=== PATIENT | male | born 1960 | race American Indian/Alaskan Native ===

== ENCOUNTER 2019-02-01 07:27 | Emergency (ER) | payer MEDICARE ==
--- NOTE | 2019-02-01 08:40 | Emergency Department Report ---
ED Abdominal Pain HPI - General Chief Complaint: Abdominal Pain Stated Complaint: ABDOMINAL PAIN Time Seen by Provider: 02/01/19 08:28 Source: patient Mode of arrival: Stretcher Limitations: Other - History of Present Illness Initial Comments: 58 YO AA MALE WHO IS VISITING HIS BROTHER COMES TO ER WITH R FLANK PAIN. NO N/V/D. NO FEVER OR CHILLS. PT IS FROM [place]. HE STATES THAT HE HAS HAD THE PAIN FOR OVER A YEAR; BUT IT IS WORSE. IT IS WORSE WITH MOVEMENT. HE HAD A COLONOSCOPY 1 MONTH AGO - HE HAD A POLYP DENIES EGD PMH ESRD ON HD- DUE TODAY HTN HPLD GERD SHINGLES--- HE CURRENTLY HAS NO RASH AND THE PAIN IS NOT DERMATONAL CHRONIC PAIN DM RX SHERWIN COREG STATIN PPI ASA DIABETES MED- FORGETS NAME. PT AMBULATORY TO ER; TAKING PO AND IN NAD Complaint: flank pain -: Gradual, month(s) (12) Location: R flank Radiation: none Severity: moderate Consistency: intermittent Worsens With: movement Associated Symptoms: denies other symptoms - Related Data Home Medications Medication Instructions Recorded Confirmed Last Taken Aspirin [Aspirin BABY CHEW TAB] 81 mg PO QDAY 02/01/19 02/01/19 01/31/19 AtorvaSTATin [Lipitor] 40 mg PO QHS 02/01/19 02/01/19 01/31/19 Carvedilol [Coreg] 25 mg PO BID 02/01/19 02/01/19 01/31/19 Gabapentin [Neurontin] 100 mg PO QHS 02/01/19 02/01/19 01/31/19 Insulin NPH Hum/Reg Insulin Hm 37 unit SQ QAM 02/01/19 02/01/19 01/31/19 [HumuLIN 70-30 Vial] Pantoprazole [Protonix] 40 mg PO QHS 02/01/19 02/01/19 01/31/19 Sucroferric Oxyhydroxide(Nf) 500 mg PO QDAY 02/01/19 02/01/19 01/31/19 [Velphoro (Nf)] Previous Rx's Medication Instructions Recorded Last Taken Type Ibuprofen [Motrin] 800 mg PO Q8HR PRN #30 tablet 02/01/19 Unknown Rx Allergies Allergy/AdvReac Type Severity Reaction Status Date / Time No Known Allergies Allergy Unverified 02/01/19 07:47 ED Review of Systems ROS: Stated complaint: ABDOMINAL PAIN Other details as noted in HPI Comment: All other systems reviewed and negative ED Past Medical Hx - Past Medical History Previous Medical History?: Yes Hx Hypertension: Yes Hx CVA: No Hx Heart Attack/AMI: No Hx Congestive Heart Failure: No Hx Diabetes: Yes Hx Deep Vein Thrombosis: No Hx Pulmonary Embolism: No Hx GERD: Yes Hx Liver Disease: No Hx Renal Disease: Yes (ESRD) Hx of Cancer: No Hx Sickle Cell Disease: No Hx Arthritis: No Hx Headaches / Migraines: No Hx Seizures: No Hx Kidney Stones: No Hx Psychiatric Treatment: No Hx Asthma: No Hx COPD: No Hx Tuberculosis: No Hx Dementia: No Hx HIV: No Additional medical history: HIGH CHOLESTROL/ SHINGLES/ GALL STONES/ LEGALLY BLIND - Surgical History Past Surgical History?: Yes Hx Open Heart Surgery: Yes ([facility] [place] 2005 AND 2007) Additional Surgical History: CHOLEY - Family History Family history: no significant - Social History Smoking Status: Never Smoker Substance Use Type: None - Medications Home Medications: Home Medications Medication Instructions Recorded Confirmed Last Taken Type Aspirin [Aspirin BABY CHEW TAB] 81 mg PO QDAY 02/01/19 02/01/19 01/31/19 History AtorvaSTATin [Lipitor] 40 mg PO QHS 02/01/19 02/01/19 01/31/19 History Carvedilol [Coreg] 25 mg PO BID 02/01/19 02/01/19 01/31/19 History Gabapentin [Neurontin] 100 mg PO QHS 02/01/19 02/01/19 01/31/19 History Ibuprofen [Motrin] 800 mg PO Q8HR PRN #30 tablet 02/01/19 Unknown Rx Insulin NPH Hum/Reg Insulin Hm 37 unit SQ QAM 02/01/19 02/01/19 01/31/19 History [HumuLIN 70-30 Vial] Pantoprazole [Protonix] 40 mg PO QHS 02/01/19 02/01/19 01/31/19 History Sucroferric Oxyhydroxide(Nf) 500 mg PO QDAY 02/01/19 02/01/19 01/31/19 History [Velphoro (Nf)] ED Physical Exam - General Limitations: Other General appearance: alert - Head Head exam: Present: normocephalic - Eye Eye exam: Present: PERRL - ENT ENT exam: Present: mucous membranes moist - Neck Neck exam: Present: normal inspection - Respiratory Respiratory exam: Present: normal lung sounds bilaterally - Cardiovascular Cardiovascular Exam: Present: regular rate - GI/Abdominal GI/Abdominal exam: Present: soft, normal bowel sounds - Rectal Rectal exam: Present: deferred - Extremities Exam Extremities exam: Present: normal inspection, full ROM - Back Exam Back exam: Present: normal inspection, full ROM. Absent: CVA tenderness (R), CVA tenderness (L) - Neurological Exam Neurological exam: Present: alert, oriented X3, CN II-XII intact - Psychiatric Psychiatric exam: Present: normal affect, normal mood - Skin Skin exam: Present: warm, dry, intact ED Course Vital Signs 02/01/19 02/01/19 02/01/19 07:30 07:55 09:50 Temperature 98.1 F Pulse Rate 80 90 Respiratory 22 24 20 Rate Blood Pressure 167/81 Blood Pressure 180/85 [Left] O2 Sat by Pulse 95 Oximetry ED Medical Decision Making - Lab Data Result diagrams: 02/01/19 08:17 02/01/19 08:17 - Radiology Data Radiology results: report reviewed, image reviewed - Medical Decision Making Lab Results 02/01/19 02/01/19 02/01/19 Range/Units 08:17 08:17 09:14 WBC 5.6 (4.5-11.0) K/mm3 RBC 5.59 H (3.65-5.03) M/mm3 Hgb 15.4 H (11.8-15.2) gm/dl Hct 47.8 H (35.5-45.6) % MCV 86 (84-94) fl MCH 28 (28-32) pg MCHC 32 (32-34) % RDW 16.6 H (13.2-15.2) % Plt Count 133 L (140-440) K/mm3 Lymph % (Auto) 18.6 (13.4-35.0) % Butts % (Auto) 13.0 H (0.0-7.3) % Eos % (Auto) 5.5 H (0.0-4.3) % Baso % (Auto) 0.9 (0.0-1.8) % Lymph # 1.0 L (1.2-5.4) K/mm3 Butts # 0.7 (0.0-0.8) K/mm3 Eos # 0.3 (0.0-0.4) K/mm3 Baso # 0.1 (0.0-0.1) K/mm3 Seg Neutrophils % 62.0 (40.0-70.0) % Seg Neutrophils # 3.5 (1.8-7.7) K/mm3 Sodium 140 (137-145) mmol/L Potassium 4.4 (3.6-5.0) mmol/L Chloride 97.1 L (98-107) mmol/L Carbon Dioxide 24 (22-30) mmol/L Anion Gap 23 mmol/L BUN 49 H (9-20) mg/dL Creatinine 7.2 H (0.8-1.5) mg/dL Estimated GFR 9 ml/min BUN/Creatinine Ratio 7 % Glucose 173 H (75-100) mg/dL Calcium 10.0 (8.4-10.2) mg/dL Total Bilirubin 0.50 (0.1-1.2) mg/dL AST 14 (5-40) units/L ALT 23 (7-56) units/L Alkaline Phosphatase 87 (35-129) units/L Total Protein 8.1 (6.3-8.2) g/dL Albumin 4.2 (3.9-5) g/dL Albumin/Globulin Ratio 1.1 % Urine Color Yellow (Yellow) Urine Turbidity Clear (Clear) Urine pH 8.0 H (5.0-7.0) Ur Specific [place] 1.011 (1.003-1.030) Urine Protein 100 mg/dl (Negative) mg/dL Urine Glucose (UA) >=500 (Negative) mg/dL Urine Ketones Neg (Negative) mg/dL Urine Blood Mod (Negative) Urine Nitrite Neg (Negative) Urine Bilirubin Neg (Negative) Urine Urobilinogen < 2.0 (<2.0) mg/dL Ur Leukocyte Esterase Neg (Negative) Urine WBC (Auto) 1.0 (0.0-6.0) /HPF Urine RBC (Auto) 59.0 (0.0-6.0) /HPF U Epithel Cells (Auto) < 1.0 (0-13.0) /HPF Vital Signs 02/01/19 02/01/19 02/01/19 07:30 07:55 09:50 Temperature 98.1 F Pulse Rate 80 90 Respiratory 22 24 20 Rate Blood Pressure 167/81 Blood Pressure 180/85 [Left] O2 Sat by Pulse 95 Oximetry LABS NOTED WBC NORMAL NO RASH NO FEVER/CHILLS CT NOTED NO STONE HEMATURIA ON UA ABD SNT/TAKING PO/ NO CVA TENDERNESS/NO FEVER/ HX CHOLEY/ ON PPI AT HOME PT MEDICATED FOR PAIN. LONG DISCUSSION WITH PT ABOUT PAIN WHICH HE HAS HAD OVER 1 Y; WHICH IS INC W MOVEMENT-HE WILL FOLLOW UP WITH PCP/GI/NEPHROLOGY. HE HAS BEEN WORKED UP HERE IN ER GIVEN HIS MEDICAL HX AND RISK FACTORS. DC HOME WITH COPY OF IMAGES ON DISC AND FOLLOW UP DISCUSSED. PT IS BEING DC HOME TO GO TO HD NOW - Differential Diagnosis RO K STONE/SHINGLES Critical care attestation.: If time is entered above; I have spent that time in minutes in the direct care of this critically ill patient, excluding procedure time. 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 [Outside] - 3-5 Days INES FABIAN MD [Staff Physician] - 3-5 Days AZALIA OWUSU MD [Staff Physician] - 3-5 Days CAROLEE COTTON MD [Staff Physician] - 3-5 Days Time of Disposition: 11:15
[2019-02-01 08:45] LABS: Basophils # (Auto) 0.1 K/mm3 (0.0-0.1); Basophils % (Auto) 0.9 % (0.0-1.8); Eosinophils # (Auto) 0.3 K/mm3 (0.0-0.4); Eosinophils % (Auto) 5.5 % (0.0-4.3); Hematocrit 47.8 % (35.5-45.6); Hemoglobin 15.4 gm/dl (11.8-15.2); Lymphocytes % (Auto) 18.6 % (13.4-35.0); Mean Corpuscular HGB Conc 32 % (32-34); Mean Corpuscular Volume 86 fl (84-94); Monocytes # (Auto) 0.7 K/mm3 (0.0-0.8); Platelet Count 133 K/mm3 (140-440); Red Blood Count 5.59 M/mm3 (3.65-5.03); Red Cell Distribution Width 16.6 % (13.2-15.2)
[2019-02-01] MEDS ORDERED: NORCO 5/325 PO ONE (08:48)
[2019-02-01 09:07] LABS: Albumin 4.2 g/dL (3.9-5)
[2019-02-01 09:27] LABS: Bilirubin,Urine NEG (Negative); Blood,Urine MOD (Negative); Color,Urine Yellow (Yellow); Urobilinogen,Urine < 2.0 mg/dL (<2.0)
--- NOTE | 2019-02-01 11:08 | Cat Scan Report ---
CT ABDOMEN AND PELVIS WITHOUT CONTRAST HISTORY: R FLANK PAIN COMPARISON: None. TECHNIQUE: Axial CT images were obtained through the abdomen and pelvis without IV contrast. Sagittal and coronal reformatted images. All CT scans at this location are performed using CT dose reduction for ALARA by means of automated exposure control. FINDINGS: CT ABDOMEN: Lung Bases: Clear. Liver: No significant abnormality. Biliary: Cholecystectomy is suspected. No biliary dilatation. Spleen: No significant abnormality. Unenlarged. Pancreas: No significant abnormality. Adrenals: No significant abnormality. Kidneys: There is mild right hydronephrosis. No obstructing stone is identified in the right ureter. No renal stones, cystic disease or obvious mass. Lymphatics: No lymphadenopathy. Vasculature: Mild aortic calcifications. No aneurysm. Bowel/Peritoneum: No significant abnormality. No free air. No free fluid. The appendix is not confide ntly identified. CT PELVIS: : No significant abnormality. Osseous Structures: Intact. Mild degenerative changes at L5-S1. Additional Findings: There is a focal area skin thickening in the anterior pelvic wall measuring 8.3 cm in diameter and 1.8 cm in thickness. There is trace underlying subcutaneous gas. No encapsulated f luid collection. IMPRESSION: Mild right hydronephrosis is identified but no obstructing stone is identified in the right ureter. N onvisualized stone Recently passed stone No renal stones are appreciated. Please correlate with the p atient's clinical presentation. Focal area of skin thickening with trace underlying subcutaneous gas gas inferior to the umbilicus is of uncertain etiology. Cellulitis could be considered. Signer Name: Jay Jones Jr, MD Signed: 02/01/2019 11:03 AM Workstation Name: [id number]
[2019-02-01 14:09] VITALS: BP 161/82
== END 2019-02-01 14:09 | disposition home or self-care (01) ==
LOC: ED 07:27
DX: I12.0 Hypertensive chronic kidney disease with stage 5 chronic kidney disease or end stage renal disease (principal); E11.22 Type 2 diabetes mellitus with diabetic chronic kidney disease; N18.6 End stage renal disease; Z99.2 Dependence on renal dialysis; K21.9 Gastro-esophageal reflux disease without esophagitis; E78.5 Hyperlipidemia, unspecified; Z79.82 Long term (current) use of aspirin; Z79.4 Long term (current) use of insulin; Z79.899 Other long term (current) drug therapy
CPT/HCPCS: 36415; 74176; 80053; 81001; 85025; 99284

== ENCOUNTER 2019-12-15 16:01 | Observation (INO) | payer MEDICARE ==
--- NOTE | 2019-12-15 17:24 | Event Note ---
ED Screening Note ED Screening Note: went to dialysis and his BP was elevated completed his dialysis states he did not take his coreg today, takes coreg 25 mg BID last had it last night no headache, no CP, no SOB, no leg swelling, no abd pain, denies any pain no oxygen use at home PMHx ESRD-on dialysis, HTN, blindness, HLD, CAD with CABG no allergies to meds repeat BP 211/106 This initial assessment/diagnostic orders/clinical plan/treatment(s) is/are subject to change based on patients health status, clinical progression and re- assessment by fellow clinical providers in the ED. Further treatment and workup at subsequent clinical providers discretion. Patient/guardian urged not to elope from the ED as their condition may be serious if not clinically assessed and managed. Initial orders include: labs, EKG, cxr
[2019-12-15] MEDS ORDERED: carvediloL 6.25 MG TAB PO ONE (17:26)
[2019-12-15 18:10] LABS: Basophils # (Auto) 0.1 K/mm3 (0.0-0.1); Basophils % (Auto) 0.8 % (0.0-1.8); Eosinophils # (Auto) 0.4 K/mm3 (0.0-0.4); Eosinophils % (Auto) 5.3 % (0.0-4.3); Hematocrit 38.5 % (35.5-45.6); Hemoglobin 12.6 gm/dl (11.8-15.2); Lymphocytes # (Auto) 1.1 K/mm3 (1.2-5.4); Lymphocytes % (Auto) 13.9 % (13.4-35.0); Mean Corpuscular HGB Conc 33 % (32-34); Mean Corpuscular Volume 83 fl (84-94); Monocytes # (Auto) 0.8 K/mm3 (0.0-0.8); Monocytes % (Auto) 9.6 % (0.0-7.3); Platelet Count 137 K/mm3 (140-440); Red Blood Count 4.61 M/mm3 (3.65-5.03); Red Cell Distribution Width 16.6 % (13.2-15.2)
[2019-12-15 18:25] LABS: Albumin 3.9 g/dL (3.9-5)
[2019-12-15 18:40] LABS: Chol/HDL Ratio 2.71 %
--- NOTE | 2019-12-15 20:12 | XRay Report ---
CHEST 2 VIEWS INDICATION / CLINICAL INFORMATION: htn urgency, hypoxia. COMPARISON: None available. FINDINGS: SUPPORT DEVICES: None. HEART / MEDIASTINUM: Enlarged cardiac silhouette. Prior sternotomy. Mediastinal clips. LUNGS / PLEURA: Central pulmonary vascular congestion and mild bibasilar opacities. No pneumothorax o r pleural effusion. ADDITIONAL FINDINGS: Left axillary stent graft material. IMPRESSION: 1. Findings consistent with congestive heart failure and mild bilateral pulmonary edema. 2. Prior CABG. Signer Name: Lars Fonseca MD Signed: 12/15/2019 8:08 PM Workstation Name: [id number]
--- NOTE | 2019-12-15 22:27 | Emergency Department Report ---
ED General Adult HPI - General Chief complaint: High BP Stated complaint: HBP PUI?: No Time Seen by Provider: 12/15/19 22:18 Source: patient Mode of arrival: Wheelchair Limitations: No Limitations - History of Present Illness Initial comments: A 64-year-old male that presents emergency room with complaints of elevated blood pressure. Patient denies chest pain and headache. Patient denies dizziness. Patient denies syncope. Patient states he was at dialysis today had a full treatment and his blood pressure remained high. Patient's states that he might have missed 1 of his blood pressure medications last night. Patient states at times he has dyspnea on exertion. Patient denies any other complaints. Patient denies recent travel. Patient denies recent international travel. Patient denies exposure to the novel coronavirus. Patient denies sick contacts. Patient denies fever and chills. Patient denies cough. Patient denies diarrhea. Patient denies coming in contact with anybody with symptoms of the novel coronavirus. -: Sudden Improves with: medication, rest Worsens with: movement, other (Missed meds) Associated Symptoms: denies: confusion, chest pain, cough, diaphoresis, fever/chills, headaches, loss of appetite, malaise, nausea/vomiting, rash, seizure, syncope, weakness Treatments Prior to Arrival: none - Related Data Home Medications Medication Instructions Recorded Confirmed Last Taken Aspirin [Aspirin BABY CHEW TAB] 81 mg PO QDAY 02/01/19 02/01/19 01/31/19 AtorvaSTATin [Lipitor] 40 mg PO QHS 02/01/19 02/01/19 01/31/19 Gabapentin [Neurontin] 100 mg PO QHS 02/01/19 02/01/19 01/31/19 Insulin NPH Hum/Reg Insulin Hm 37 unit SQ QAM 02/01/19 02/01/19 01/31/19 [HumuLIN 70-30 Vial] Pantoprazole [Protonix] 40 mg PO QHS 02/01/19 02/01/19 01/31/19 Sucroferric Oxyhydroxide(Nf) 500 mg PO QDAY 02/01/19 02/01/19 01/31/19 [Velphoro (Nf)] carvediloL [Coreg] 25 mg PO BID 02/01/19 02/01/19 01/31/19 Previous Rx's Medication Instructions Recorded Last Taken Type Ibuprofen [Motrin] 800 mg PO Q8HR PRN #30 tablet 02/01/19 Unknown Rx Allergies Allergy/AdvReac Type Severity Reaction Status Date / Time No Known Allergies Allergy Unverified 02/01/19 07:47 ED Review of Systems ROS: Stated complaint: HBP Other details as noted in HPI Constitutional: denies: chills, fever Eyes: denies: eye pain, eye discharge, vision change ENT: denies: ear pain, throat pain Respiratory: denies: cough, wheezing Cardiovascular: dyspnea on exertion. denies: chest pain, palpitations Endocrine: no symptoms reported Gastrointestinal: denies: abdominal pain, nausea, diarrhea Genitourinary: denies: urgency, dysuria Musculoskeletal: denies: back pain, joint swelling, arthralgia Skin: denies: rash, lesions Neurological: denies: headache, weakness, paresthesias Psychiatric: denies: anxiety, depression Hematological/Lymphatic: denies: easy bleeding, easy bruising ED Past Medical Hx - Past Medical History Previous Medical History?: Yes Hx Hypertension: Yes Hx CVA: No Hx Heart Attack/AMI: No Hx Congestive Heart Failure: No Hx Diabetes: Yes Hx Deep Vein Thrombosis: No Hx Pulmonary Embolism: No Hx GERD: Yes Hx Liver Disease: No Hx Renal Disease: Yes (ESRD) Hx Sickle Cell Disease: No Hx Arthritis: No Hx Headaches / Migraines: No Hx Seizures: No Hx Kidney Stones: No Hx Psychiatric Treatment: No Hx Asthma: No Hx COPD: No Hx Tuberculosis: No Hx Dementia: No Hx HIV: No Additional medical history: HIGH CHOLESTROL/ SHINGLES/ GALL STONES/ LEGALLY BLIND - Surgical History Past Surgical History?: Yes Hx Open Heart Surgery: Yes ([facility] [place] 2005 AND 2007) Additional Surgical History: CHOLEY - Family History Family history: no significant - Social History Smoking Status: Never Smoker Substance Use Type: None - Medications Home Medications: Home Medications Medication Instructions Recorded Confirmed Last Taken Type Aspirin [Aspirin BABY CHEW TAB] 81 mg PO QDAY 02/01/19 02/01/19 01/31/19 History AtorvaSTATin [Lipitor] 40 mg PO QHS 02/01/19 02/01/19 01/31/19 History Gabapentin [Neurontin] 100 mg PO QHS 02/01/19 02/01/19 01/31/19 History Ibuprofen [Motrin] 800 mg PO Q8HR PRN #30 tablet 02/01/19 Unknown Rx Insulin NPH Hum/Reg Insulin Hm 37 unit SQ QAM 02/01/19 02/01/19 01/31/19 History [HumuLIN 70-30 Vial] Pantoprazole [Protonix] 40 mg PO QHS 02/01/19 02/01/19 01/31/19 History Sucroferric Oxyhydroxide(Nf) 500 mg PO QDAY 02/01/19 02/01/19 01/31/19 History [Velphoro (Nf)] carvediloL [Coreg] 25 mg PO BID 02/01/19 02/01/19 01/31/19 History ED Physical Exam - General Limitations: No Limitations General appearance: alert, in no apparent distress - Head Head exam: Present: atraumatic, normocephalic - Eye Eye exam: Present: normal appearance - ENT ENT exam: Present: mucous membranes moist - Neck Neck exam: Present: normal inspection - Respiratory Respiratory exam: Present: normal lung sounds bilaterally. Absent: respiratory distress, wheezes, rales - Cardiovascular Cardiovascular Exam: Present: regular rate, normal rhythm. Absent: systolic murmur, diastolic murmur, rubs, gallop - GI/Abdominal GI/Abdominal exam: Present: soft, normal bowel sounds - Rectal Rectal exam: Present: deferred - Extremities Exam Extremities exam: Present: normal inspection - Back Exam Back exam: Present: normal inspection - Neurological Exam Neurological exam: Present: alert, oriented X3 - Psychiatric Psychiatric exam: Present: normal affect, normal mood - Skin Skin exam: Present: warm, dry, intact, normal color. Absent: rash ED Course Vital Signs 12/15/19 12/15/19 16:07 18:48 Temperature 98.0 F Pulse Rate 91 H Respiratory 20 Rate Blood Pressure 227/128 Blood Pressure 195/109 [Right] O2 Sat by Pulse 90 Oximetry - Reevaluation(s) Reevaluation #1: Patient not connected to our library monitor. Patient hypoxic. Patient will be placed on 2 L of oxygen. 12/15/19 22:24 Reevaluation #2: Patient currently on 4 L of O2 and his oxygen has improved. Patient states that he still makes urine. Patient will be given Lasix for the pulmonary edema. I discussed all results with patient. I discussed plan of care with patient. Patient agrees with plan of care and admission. Patient to be admitted to the hospitalist service. 12/15/19 23:36 - Consultations Consultation #1: Hospitalist consulted for admission. Hospitalist to admit patient. 12/15/19 23:36 ED Medical Decision Making - Lab Data Result diagrams: 12/15/19 17:50 12/15/19 17:50 - EKG Data EKG shows normal: sinus rhythm, axis, intervals, QRS complexes, ST-T waves Rate: normal - EKG Data Interpretation: LV[facility] - Radiology Data Radiology results: report reviewed, image reviewed interpreted by me: Chest x-ray: Pulmonary edema, cardiomegaly, CHF changes, no pneumonia, no pneumothorax, no fracture. No foreign body noted.. CHEST 2 VIEWS INDICATION / CLINICAL INFORMATION: htn urgency, hypoxia. COMPARISON: None available. FINDINGS: SUPPORT DEVICES: None. HEART / MEDIASTINUM: Enlarged cardiac silhouette. Prior sternotomy. Mediastinal clips. LUNGS / PLEURA: Central pulmonary vascular congestion and mild bibasilar opacities. No pneumothorax or pleural effusion. ADDITIONAL FINDINGS: Left axillary stent graft material. IMPRESSION: 1. Findings consistent with congestive heart failure and mild bilateral pulmonary edema. 2. Prior CABG. - Medical Decision Making Patient is a 59-year-old male who presents emergency room with complaints elevated blood pressure. Patient states he has dyspnea on exertion at times. Patient in triage found to be hypoxic. Patient was placed on oxygen and his oxygenation improved. Patient was given carvedilol in triage and his blood pressure improved. Patient's blood pressure remained high. Patient's had a chest x-ray which shows pulmonary edema. Patient given IV Lasix. Patient was placed on oxygen and required 4 L to support his hypoxia. Patient admitted to the hospitalist service. - Differential Diagnosis Hypoxia, CHF, hypertensive emergency. COBOS Critical Care Time: Yes Critical care time in (mins) excluding proc time.: 35 Critical care attestation.: If time is entered above; I have spent that time in minutes in the direct care of this critically ill patient, excluding procedure time. Critical Care Time: 35 MINUTES ED Disposition Clinical Impression: COBOS (dyspnea on exertion), Hypertensive emergency, Pulmonary edema cardiac cause, Hypoxia, ESRD (end stage renal disease) on dialysis CHF (congestive heart failure) Qualifiers: Heart failure type: unspecified Heart failure chronicity: acute on chronic Qualified Code(s): I50.9 - Heart failure, unspecified Respiratory failure Qualifiers: Chronicity: acute Respiratory failure complication: hypoxia Qualified Code(s): J96.01 - Acute respiratory failure with hypoxia Disposition: DC-09 OP ADMIT IP TO THIS HOSP Is pt being admited?: Yes Does the pt Need Aspirin: No Condition: Critical Time of Disposition: 23:41
[2019-12-15] MEDS ORDERED: FUROSEMIDE 40 MG/4 ML INJ IV ONE (23:37)
[2019-12-16] MEDS ORDERED: ALBUTEROL 2.5 MG/3 ML NEBU IH PRN (10:02)
[2019-12-16] MEDS ORDERED: DEXTROSE 50% IN WATER (25GM) 50 ML SYRINGE IV PRN (10:02)
[2019-12-16] MEDS ORDERED: ONDANSETRON 4 MG/2 ML INJ IV PRN (10:02)
[2019-12-16] MEDS ORDERED: ALUM-MAG HYDROXIDE-SIMETHICONE 200-200-20MG/5ML ORAL LIQD 30 ML PO PRN (10:02)
[2019-12-16] MEDS ORDERED: ACETAMINOPHEN 325 MG TAB PO PRN (10:02)
--- NOTE | 2019-12-16 10:05 | History and Physical Report ---
History of Present Illness Date of examination: 12/16/19 Date of admission: 12/16/19 00:46 Chief complaint: Shortness of breath History of present illness: Patient is a 64-year-old male legally Blind, esrd, HTN presents to the ED following complaints of Elevated BP from Dialysis places. Patient denies chest pain and headache. Patient denies dizziness. Patient denies syncope. Patient states he was at dialysis today had a full treatment and his blood pressure re mained high. Patient's states that he might have missed 1 of his blood pressure medications last night. Patient states at times he has dyspnea on exertion. Patient denies any other complaints. Patient denies recent travel. Patient denies recent international travel. Patient denies exposure to the novel coronavirus. Patient denies sick contacts. Patient denies fever and chills. Patient denies cough. Patient denies diarrhea. Patient denies coming in contact with anybody with symptoms of the novel coronavirus. On arrival to the ED the patient was noted to have BP 227/128, this improved with management in the ED. We are asked to admit the patient for further management. On my arrival patient denies any chest pain, he informs me that he will like to be discharge as he knows what to do and he only missed one medication. Past History Past Medical History: ESRD, GERD, hypertension, other (Blind) Social history: no significant social history, lives with family Family history: no significant family history Medications and Allergies Allergies Allergy/AdvReac Type Severity Reaction Status Date / Time No Known Allergies Allergy Unverified 02/01/19 07:47 Home Medications Medication Instructions Recorded Confirmed Last Taken Type Aspirin [Aspirin BABY CHEW TAB] 81 mg PO QDAY 02/01/19 12/16/19 01/31/19 History AtorvaSTATin [Lipitor] 40 mg PO QHS 02/01/19 12/16/19 01/31/19 History Gabapentin [Neurontin] 100 mg PO QHS 02/01/19 12/16/19 01/31/19 History Ibuprofen [Motrin] 800 mg PO Q8HR PRN #30 tablet 02/01/19 12/16/19 Unknown Rx Insulin NPH Hum/Reg Insulin Hm 37 unit SQ QAM 02/01/19 12/16/19 01/31/19 History [HumuLIN 70-30 Vial] Pantoprazole [Protonix] 40 mg PO QHS 02/01/19 12/16/19 01/31/19 History Sucroferric Oxyhydroxide(Nf) 500 mg PO QDAY 02/01/19 12/16/19 01/31/19 History [Velphoro (Nf)] carvediloL [Coreg] 25 mg PO BID 02/01/19 12/16/19 01/31/19 History Active Meds: Active Medications Acetaminophen (Tylenol) 650 mg PO Q4H PRN PRN Reason: Pain MILD(1-3)/Fever >100.5/VICTORIA Al Hydrox/Mg Hydrox/Simethicone (Alum-Mag Hydrox-Simeth 556-686-70hv/5ml) 30 ml PO Q4H PRN PRN Reason: Indigestion Albuterol (Proventil) 2.5 mg IH Q4HRT PRN PRN Reason: Shortness Of Breath Aspirin (Baby Aspirin) 81 mg PO QDAY [facility] Atorvastatin Calcium (Lipitor) 40 mg PO QHS [facility] Carvedilol (Coreg) 25 mg PO BID [facility] Dextrose (D50w (25gm) Syringe) 50 ml IV Q30MIN PRN; Protocol PRN Reason: Hypoglycemia Famotidine (Pepcid) 20 mg IV BID [facility] Gabapentin (Gabapentin) 100 mg PO QHS [facility] Insulin Human Isoph/Insulin Regular (Humulin 70/30) 37 unit SUB-Q QAM [facility] Miscellaneous Medication (Sucroferric Oxyhydroxide(Nf)) 500 mg PO QDAY [facility] Ondansetron HCl (Zofran) 4 mg IV Q8H PRN PRN Reason: Nausea And Vomiting Pantoprazole Sodium (Protonix) 40 mg PO QHS [facility] Sodium Chloride (Sodium Chloride Flush Syringe 10 Ml) 10 ml IV BID [facility] Sodium Chloride (Sodium Chloride Flush Syringe 10 Ml) 10 ml IV PRN PRN PRN Reason: LINE FLUSH Review of Systems All systems: negative Constitutional: no weakness, no malaise, no lethargy Cardiovascular: chest pain, orthopnea, palpitations Respiratory: cough Musculoskeletal: neck pain Exam - Constitutional Vitals: Temp Pulse Resp BP Pulse Ox 98.9 F 82 18 169/82 91 12/16/19 08:47 12/16/19 08:47 12/16/19 08:47 12/16/19 08:47 12/16/19 08:47 General appearance: Present: no acute distress, well-nourished - EENT Eyes: Present: PERRL (blind) ENT: hearing intact, clear oral mucosa - Neck Neck: Present: supple, normal ROM - Respiratory Respiratory effort: normal Respiratory: bilateral: CTA - Cardiovascular Rhythm: regular Heart Sounds: Present: S1 & S2, systolic murmur - Extremities Extremities: no ischemia, pulses intact, No edema, normal temperature, Full ROM Peripheral Pulses: within normal limits - Abdominal General gastrointestinal: Present: soft, non-tender, non-distended, normal bowel sounds - Musculoskeletal Musculoskeletal: strength equal bilaterally - Psychiatric Psychiatric: appropriate mood/affect, intact judgment & insight, memory intact, cooperative - Neurologic Neurologic: CNII-XII intact, moves all extremities - Allied Health Allied health notes reviewed: nursing HEART Score - HEART Score Troponin: Troponin T 0.075 ng/mL (0.00-0.029) H D 12/16/19 08:36 Results - Labs CBC & Chem 7: 12/15/19 17:50 12/15/19 17:50 Labs: Laboratory Last Values WBC 7.8 K/mm3 (4.5-11.0) 12/15/19 17:50 RBC 4.61 M/mm3 (3.65-5.03) 12/15/19 17:50 Hgb 12.6 gm/dl (11.8-15.2) 12/15/19 17:50 Hct 38.5 % (35.5-45.6) 12/15/19 17:50 MCV 83 fl (84-94) L 12/15/19 17:50 MCH 27 pg (28-32) L 12/15/19 17:50 MCHC 33 % (32-34) 12/15/19 17:50 RDW 16.6 % (13.2-15.2) H 12/15/19 17:50 Plt Count 137 K/mm3 (140-440) L 12/15/19 17:50 Lymph % (Auto) 13.9 % (13.4-35.0) 12/15/19 17:50 [place] % (Auto) 9.6 % (0.0-7.3) H 12/15/19 17:50 Eos % (Auto) 5.3 % (0.0-4.3) H 12/15/19 17:50 Baso % (Auto) 0.8 % (0.0-1.8) 12/15/19 17:50 Lymph # 1.1 K/mm3 (1.2-5.4) L 12/15/19 17:50 [place] # 0.8 K/mm3 (0.0-0.8) 12/15/19 17:50 Eos # 0.4 K/mm3 (0.0-0.4) 12/15/19 17:50 Baso # 0.1 K/mm3 (0.0-0.1) 12/15/19 17:50 Seg Neutrophils % 70.4 % (40.0-70.0) H 12/15/19 17:50 Seg Neutrophils # 5.5 K/mm3 (1.8-7.7) 12/15/19 17:50 Sodium 138 mmol/L (137-145) 12/15/19 17:50 Potassium 3.3 mmol/L (3.6-5.0) L 12/15/19 17:50 Chloride 95.4 mmol/L (98-107) L 12/15/19 17:50 Carbon Dioxide 27 mmol/L (22-30) 12/15/19 17:50 Anion Gap 19 mmol/L 12/15/19 17:50 BUN 25 mg/dL (9-20) H 12/15/19 17:50 Creatinine 4.8 mg/dL (0.8-1.3) H 12/15/19 17:50 Estimated GFR 15 ml/min 12/15/19 17:50 BUN/Creatinine Ratio 5 % 12/15/19 17:50 Glucose 232 mg/dL (75-100) H 12/15/19 17:50 POC Glucose 180 (70-105) H 12/16/19 08:37 Calcium 10.0 mg/dL (8.4-10.2) 12/15/19 17:50 Total Bilirubin 0.50 mg/dL (0.1-1.2) 12/15/19 17:50 AST 15 units/L (5-40) 12/15/19 17:50 ALT 24 units/L (7-56) 12/15/19 17:50 Alkaline Phosphatase 88 units/L (35-129) 12/15/19 17:50 Troponin T 0.075 ng/mL (0.00-0.029) H D 12/16/19 08:36 Total Protein 7.7 g/dL (6.3-8.2) 12/15/19 17:50 Albumin 3.9 g/dL (3.9-5) 12/15/19 17:50 Albumin/Globulin Ratio 1.0 % 12/15/19 17:50 Triglycerides 159 mg/dL (2-149) H 12/15/19 17:50 Cholesterol 141 mg/dL (50-199) 12/15/19 17:50 LDL Cholesterol Direct 69 mg/dL (50-130) 12/15/19 17:50 HDL Cholesterol 52 mg/dL (40-59) 12/15/19 17:50 Cholesterol/HDL Ratio 2.71 % 12/15/19 17:50 Clifford/IV: IV Catheter Type [Right Wrist] INT / Saline Lock Assessment and Plan Assessment and plan: Patient is a 64-year-old male legally Blind, esrd, HTN presents to the ED following complaints of Elevated BP from Dialysis places. Patient denies chest pain and headache. Patient denies dizziness. Patient denies syncope. Patient states he was at dialysis today had a full treatment and his blood pressure remained high. Patient's states that he might have missed 1 of his blood pressure medications last night. Patient states at times he has dyspnea on exertion. Patient denies any other complaints. Patient denies recent travel. Patient denies recent international travel. Patient denies exposure to the novel coronavirus. Patient denies sick contacts. Patient denies fever and chills. Patient denies cough. Patient denies diarrhea. Patient denies coming in contact with anybody with symptoms of the novel coronavirus. On arrival to the ED the patient was noted to have BP 227/128, this improved with management in the ED. We are asked to admit the patient for further management. On my arrival patient denies any chest pain, he informs me that he will like to be discharge as he knows what to do and he only missed one medication. Hypertensive Urgency ESRD Type 2 MD Hypokalemia DM Type 2 MD Plan Admit to Telemetry Continue supportive care Advised patient of important of monitoring BP Cardiology and nephrology consult. Replace potassium. Anticipate discharge in a.m. if remains clinically stable. DVT and GI prophylax Advance Directives: Yes Plan of care discussed with patient/family: Yes
[2019-12-16] MEDS ORDERED: carvediloL 25 MG TAB PO SCH (11:00)
[2019-12-16] MEDS ORDERED: ASPIRIN 81 MG TAB CHEW PO SCH (11:00)
[2019-12-16] MEDS ORDERED: INSULIN NPH/REGULAR 70/30 INJ SUB-Q SCH (12:00)
--- NOTE | 2019-12-16 12:43 | Consultation ---
History of Present Illness Consult date: 12/16/19 Requesting physician: GABO HOWE Consult reason: congestive heart failure Past History Past Medical History: ESRD, GERD, hypertension, other (Blind) Social history: no significant social history, lives with family Family history: no significant family history Medications and Allergies Allergies Allergy/AdvReac Type Severity Reaction Status Date / Time No Known Allergies Allergy Unverified 02/01/19 07:47 Home Medications Medication Instructions Recorded Confirmed Last Taken Type Aspirin [Aspirin BABY CHEW TAB] 81 mg PO QDAY 02/01/19 12/16/19 01/31/19 History AtorvaSTATin [Lipitor] 40 mg PO QHS 02/01/19 12/16/19 01/31/19 History Gabapentin [Neurontin] 100 mg PO QHS 02/01/19 12/16/19 01/31/19 History Ibuprofen [Motrin] 800 mg PO Q8HR PRN #30 tablet 02/01/19 12/16/19 Unknown Rx Insulin NPH Hum/Reg Insulin Hm 37 unit SQ QAM 02/01/19 12/16/19 01/31/19 History [HumuLIN 70-30 Vial] Pantoprazole [Protonix] 40 mg PO QHS 02/01/19 12/16/19 01/31/19 History Sucroferric Oxyhydroxide(Nf) 500 mg PO QDAY 02/01/19 12/16/19 01/31/19 History [Velphoro (Nf)] carvediloL [Coreg] 25 mg PO BID 02/01/19 12/16/19 01/31/19 History Active Meds: Active Medications Acetaminophen (Tylenol) 650 mg PO Q4H PRN PRN Reason: Pain MILD(1-3)/Fever >100.5/VICTORIA Al Hydrox/Mg Hydrox/Simethicone (Alum-Mag Hydrox-Simeth [phone]/5ml) 30 ml PO Q4H PRN PRN Reason: Indigestion Albuterol (Proventil) 2.5 mg IH Q4H PRN PRN Reason: Shortness Of Breath Aspirin (Baby Aspirin) 81 mg PO QDAY [facility] Last Admin: 12/16/19 12:23 Dose: 81 mg Documented by: Atorvastatin Calcium (Lipitor) 40 mg PO QHS [facility] Carvedilol (Coreg) 25 mg PO BID [facility] Last Admin: 12/16/19 12:23 Dose: 25 mg Documented by: Dextrose (D50w (25gm) Syringe) 50 ml IV Q30MIN PRN; Protocol PRN Reason: Hypoglycemia Gabapentin (Gabapentin) 100 mg PO QHS [facility] Insulin Human Isoph/Insulin Regular (Humulin 70/30) 37 unit SUB-Q QAM [facility] Last Admin: 12/16/19 12:24 Dose: 37 unit Documented by: Miscellaneous Medication (Sucroferric Oxyhydroxide(Nf)) 500 mg PO QDAY [facility] Ondansetron HCl (Zofran) 4 mg IV Q8H PRN PRN Reason: Nausea And Vomiting Pantoprazole Sodium (Protonix) 40 mg PO QHS [facility] Sodium Chloride (Sodium Chloride Flush Syringe 10 Ml) 10 ml IV BID [facility] Sodium Chloride (Sodium Chloride Flush Syringe 10 Ml) 10 ml IV PRN PRN PRN Reason: LINE FLUSH Physical Examination Vital Signs Temp Pulse Resp BP Pulse Ox 98.0 F 91 H 20 227/128 90 12/15/19 16:07 12/15/19 16:07 12/15/19 16:07 12/15/19 16:07 12/15/19 16:07 Results 12/15/19 17:50 12/15/19 17:50 Cardiac Enzymes 12/15/19 Range/Units 17:50 AST 15 (5-40) units/L Lipids 12/15/19 Range/Units 17:50 Triglycerides 159 H (2-149) mg/dL Cholesterol 141 (50-199) mg/dL HDL Cholesterol 52 (40-59) mg/dL Cholesterol/HDL Ratio 2.71 % CBC 12/15/19 Range/Units 17:50 WBC 7.8 (4.5-11.0) K/mm3 RBC 4.61 (3.65-5.03) M/mm3 Hgb 12.6 (11.8-15.2) gm/dl Hct 38.5 (35.5-45.6) % Plt Count 137 L (140-440) K/mm3 Lymph # 1.1 L (1.2-5.4) K/mm3 [place] # 0.8 (0.0-0.8) K/mm3 Eos # 0.4 (0.0-0.4) K/mm3 Baso # 0.1 (0.0-0.1) K/mm3 Comprehensive Metabolic Panel 08/28/20 Range/Units 17:50 Sodium 138 (137-145) mmol/L Potassium 3.3 L (3.6-5.0) mmol/L Chloride 95.4 L (98-107) mmol/L Carbon Dioxide 27 (22-30) mmol/L BUN 25 H (9-20) mg/dL Creatinine 4.8 H (0.8-1.3) mg/dL Glucose 232 H (75-100) mg/dL Calcium 10.0 (8.4-10.2) mg/dL AST 15 (5-40) units/L ALT 24 (7-56) units/L Alkaline Phosphatase 88 (35-129) units/L Total Protein 7.7 (6.3-8.2) g/dL Albumin 3.9 (3.9-5) g/dL
[2019-12-16] MEDS ORDERED: hydrALAZINE 20 MG/1 ML INJ IV ONE (13:48)
[2019-12-16] MEDS ORDERED: hydrALAZINE 25 MG TAB PO SCH (14:00)
--- NOTE | 2019-12-16 16:27 | Discharge Summary ---
Providers - Providers Date of Admission: 12/16/19 00:46 Attending physician: NASREEN CHU MD 12/16/19 09:18 Consult to Physician [CONS] Routine Comment: Consulting Provider: ARNOLD AVITIA Physician Instructions: Reason For Exam: CHF 12/16/19 10:05 Consult to Physician [CONS] Routine Comment: Consulting Provider: AMISHA TOLLIVER Physician Instructions: Reason For Exam: ESRD [facility] Reason for admission: Hypertensive urgency Condition: Stable Hospital course: Patient is a 64-year-old male legally Blind, esrd, HTN presents to the ED following complaints of Elevated BP from Dialysis places. Patient denies chest pain and headache. Patient denies dizziness. Patient denies syncope. Patient states he was at dialysis today had a full treatment and his blood pressure remained high. Patient's states that he might have missed 1 of his blood pressure medications last night. Patient states at times he has dyspnea on exertion. Patient denies any other complaints. Patient denies recent travel. Patient denies recent international travel. Patient denies exposure to the novel coronavirus. Patient denies sick contacts. Patient denies fever and chills. Patient denies cough. Patient denies diarrhea. Patient denies coming in contact with anybody with symptoms of the novel coronavirus. On arrival to the ED the patient was noted to have BP 227/128, this improved with management in the ED. We are asked to admit the patient for further manage ment. On my arrival patient denies any chest pain, he informs me that he will like to be discharge as he knows what to do and he only missed one medication. On resumption of patient's blood pressure medications like he stated his blood pressure corrected. Since nursing staff tells me that his blood pressures in the 108 systolic without any other medications I have reevaluated the patient he has no headache he is asymptomatic it is all said that 1 of the elevated blood pressures is not his blood pressure unfortunately got into the system he did not receive any blood pressure medication and will be discharged at this time since his symptoms have not improved. He is also states that his family is very supportive and helps him with his medications counseling has been provided to him Hypertensive Urgency Hypertension ESRD Type 2 [place] Hypokalemia DM Type 2 [place] Disposition: TO HOME OR SELFCARE Time spent for discharge: 35-minute Core Measure Documentation - Palliative Care Palliative Care/ Comfort Measures: Not Applicable - Core Measures Any of the following diagnoses?: none Exam - Physical Exam Narrative exam: VITAL SIGNS: Reviewed. GENERAL: The patient appears normally developed, Vital signs as documented. HEAD: No signs of head trauma. EYES: Pupils are equal. Legally blind EARS: Hearing grossly intact. MOUTH: Oropharynx is normal. NECK: No adenopathy, no JVD. CHEST: Chest with clear breath sounds bilaterally. No wheezes, rales, or rhonchi. CARDIAC: Regular rate and rhythm. S1 and S2, without murmurs, gallops, or rubs. VASCULAR: No Edema. Peripheral pulses normal and equal in all extremities. ABDOMEN: Soft, non tender and non distended. No rebound or guarding, and no masses palpated. Bowel Sounds normal. MUSCULOSKELETAL: Good range of motion of all major joints. Extremities without clubbing, cyanosis or edema. NEUROLOGIC EXAM: Alert and oriented x 3 No focal sensory or strength deficits. Speech normal. Follows commands. PSYCHIATRIC: Mood normal. SKIN: detail exam as documented in skin assessment - Constitutional Vitals: Temp Pulse Resp BP Pulse Ox 98.0 F 87 18 200/131 90 12/16/19 11:05 12/16/19 11:05 12/16/19 11:05 12/16/19 11:51 12/16/19 11:05 Plan Activity: advance as tolerated, fall precautions Diet: low salt, renal Special Instructions: record daily weights, record daily BP diary Additional Instructions: Patient refused any refill he states he has all his medication. Continue dialysis with your dialysis doctor. Follow up with: MIKY LOPEZ MD [Primary Care Provider] - 7 Days
[2019-12-16 17:09] VITALS: BP 103/61
[2019-12-16] MEDS ORDERED: PANTOPRAZOLE 40 MG TAB PO SCH (22:00)
[2019-12-16] MEDS ORDERED: GABAPENTIN 100 MG CAP PO SCH (22:00)
[2019-12-16] MEDS ORDERED: FAMOTIDINE 20 MG/2 ML INJ IV SCH (22:00)
[2019-12-17] MEDS ORDERED: SUCROFERRIC OXYHYDROXIDE 500 MG PO SCH (10:00)
== END 2019-12-16 17:32 | disposition home or self-care (01) ==
LOC: ED 16:01 → 4A 12-16 00:46
PROVIDERS: ADMIT Internal Medicine Geriatric Medicine; ATTEND Internal Medicine Geriatric Medicine
DX: I16.0 Hypertensive urgency (principal); I13.2 Hypertensive heart and chronic kidney disease with heart failure and with stage 5 chronic kidney disease, or end stage renal disease; E11.22 Type 2 diabetes mellitus with diabetic chronic kidney disease; N18.6 End stage renal disease; I50.9 Heart failure, unspecified; I21.A1 Myocardial infarction type 2; E87.6 Hypokalemia; K21.9 Gastro-esophageal reflux disease without esophagitis; J96.01 Acute respiratory failure with hypoxia; E78.00 Pure hypercholesterolemia, unspecified; H54.7 Unspecified visual loss; Z91.14 Patient's other noncompliance with medication regimen; Z99.2 Dependence on renal dialysis; Z90.49 Acquired absence of other specified parts of digestive tract; Z95.1 Presence of aortocoronary bypass graft; Z79.82 Long term (current) use of aspirin; Z79.4 Long term (current) use of insulin; Z79.899 Other long term (current) drug therapy
CPT/HCPCS: 36415; 71046; 80053; 80061; 82962; 84484; 85025; 96372; 96374; 99291; G0378; J1940; J1815

== ENCOUNTER 2020-01-15 12:26 | Observation (INO) | payer MEDICARE ==
[2020-01-15] MEDS ORDERED: LORazepam 2 MG/ML VIAL IM ONE (13:00)
--- NOTE | 2020-01-15 13:05 | Emergency Department Report ---
HPI - General Chief Complaint: Neuro Symptoms/Deficit Time Seen by Provider: 01/15/20 12:47 - HPI HPI: Room 3 The patient is a 59-year-old male present with a chief complaint of involuntary movements. The patient has a history of involuntary movements for several months. The patient has been seen by neurologist and has upcoming imaging scheduled. The patient states she was at dialysis today and they told him they could not perform the hemodialysis secondary to his involuntary movements. When asked how he is feeling the patient states she feels "okay." Patient denies complaints ED Past Medical Hx - Past Medical History Hx Hypertension: Yes Hx Diabetes: Yes Hx GERD: Yes Hx Renal Disease: Yes (ESRD) Additional medical history: HIGH CHOLESTROL/ SHINGLES/ GALL STONES/ LEGALLY BLIND - Surgical History Hx Open Heart Surgery: Yes Hx Cholecystectomy: Yes - Family History Family history: no significant - Social History Smoking Status: Never Smoker Substance Use Type: None (Denies illicit drug use) - Medications Home Medications: Home Medications Medication Instructions Recorded Confirmed Last Taken Type Aspirin [Aspirin BABY CHEW TAB] 81 mg PO QDAY 02/01/19 12/16/19 01/31/19 History AtorvaSTATin [Lipitor] 40 mg PO QHS 02/01/19 12/16/19 01/31/19 History Gabapentin 100 mg PO QHS 02/01/19 12/16/19 01/31/19 History Ibuprofen [Motrin 800 MG tab] 800 mg PO Q8HR PRN #30 tablet 02/01/19 12/16/19 Unknown Rx Insulin NPH Hum/Reg Insulin Hm 37 unit SQ QAM 02/01/19 12/16/19 01/31/19 History [HumuLIN 70-30 Vial] Pantoprazole [Protonix TAB] 40 mg PO QHS 02/01/19 12/16/19 01/31/19 History Sucroferric Oxyhydroxide(Nf) 500 mg PO QDAY 02/01/19 12/16/19 01/31/19 History [Velphoro (Nf)] carvediloL [Coreg] 25 mg PO BID 02/01/19 12/16/19 01/31/19 History ED Review of Systems ROS: Stated complaint: UNCONTROLABLE MOVEMENT Other details as noted in HPI Constitutional: no symptoms reported Respiratory: no symptoms reported Endocrine: no symptoms reported Physical Exam - Physical Exam Vital Signs: Vital Signs 01/15/20 12:48 Temperature 98.0 F Pulse Rate 82 Respiratory 21 Rate Blood Pressure 187/91 [Left] O2 Sat by Pulse 95 Oximetry Physical Exam: GENERAL: The patient is well-developed well-nourished male lying on stretcher not appearing to be in acute distress. Patient sits up and sits back frequently occasionally moving side to side on the stretcher HEENT: Normocephalic. Atraumatic. Extraocular motions are intact. Patient has moist mucous membranes. NECK: Supple. Trachea midline CHEST/LUNGS: Clear to auscultation. There is no respiratory distress noted. HEART/CARDIOVASCULAR: Regular. There is no tachycardia. There is no gallop rub or murmur. ABDOMEN: Abdomen is soft, nontender. Patient has normal bowel sounds. There is no abdominal distention. SKIN: There is no rash. There is no edema. There is no diaphoresis. NEURO: The patient is awake, alert, and oriented. The patient is cooperative. The patient has normal speech MUSCULOSKELETAL: There is no evidence of acute injury. ED Course Vital Signs 01/15/20 12:48 Temperature 98.0 F Pulse Rate 82 Respiratory 21 Rate Blood Pressure 187/91 [Left] O2 Sat by Pulse 95 Oximetry - Consultations Consultation #1: 01/15/20 14:22 Nephrology paged 01/15/20 14:56 Case discussed with Micheline-recommends patient be admitted to the hospital by hospitalist for hemodialysis ED Medical Decision Making - Lab Data Result diagrams: 01/15/20 13:11 01/15/20 13:11 Laboratory Tests 01/15/20 01/15/20 13:11 13:11 WBC 9.1 RBC 4.55 Hgb 12.6 Hct 37.4 MCV 82 L MCH 28 MCHC 34 RDW 16.0 H Plt Count 153 Lymph % (Auto) 13.1 L [place] % (Auto) 9.5 H Eos % (Auto) 2.1 Baso % (Auto) 0.9 Lymph # (Auto) 1.2 [place] # (Auto) 0.9 H Eos # (Auto) 0.2 Baso # (Auto) 0.1 Seg Neutrophils % 74.4 H Seg Neutrophils # 6.8 Sodium 142 Potassium 4.6 Chloride 100.7 Carbon Dioxide 24 Anion Gap 22 BUN 49 H Creatinine 7.4 H Estimated GFR 9 BUN/Creatinine Ratio 7 Glucose 190 H Calcium 10.8 H - Differential Diagnosis ESRD Critical care attestation.: If time is entered above; I have spent that time in minutes in the direct care of this critically ill patient, excluding procedure time. ED Disposition Clinical Impression: ESRD (end stage renal disease) on dialysis Disposition: OP ADMIT IP TO THIS HOSP Is pt being admited?: Yes Does the pt Need Aspirin: No Condition: Fair Time of Disposition: 14:57 (Hospitalist notified (Dr Astorga))
[2020-01-15 13:21] LABS: Basophils # (Auto) 0.1 K/mm3 (0.0-0.1); Basophils % (Auto) 0.9 % (0.0-1.8); Eosinophils # (Auto) 0.2 K/mm3 (0.0-0.4); Eosinophils % (Auto) 2.1 % (0.0-4.3); Hematocrit 37.4 % (35.5-45.6); Hemoglobin 12.6 gm/dl (11.8-15.2); Lymphocytes # (Auto) 1.2 K/mm3 (1.2-5.4); Lymphocytes % (Auto) 13.1 % (13.4-35.0); Mean Corpuscular HGB Conc 34 % (32-34); Mean Corpuscular Volume 82 fl (84-94); Monocytes # (Auto) 0.9 K/mm3 (0.0-0.8); Monocytes % (Auto) 9.5 % (0.0-7.3); Platelet Count 153 K/mm3 (140-440); Red Blood Count 4.55 M/mm3 (3.65-5.03)
[2020-01-15 13:43] LABS: Calcium 10.8 mg/dL (8.4-10.2)
--- NOTE | 2020-01-15 17:05 | Consultation ---
History of Present Illness - Reason for Consult end stage renal disease Requesting physician: MATTHEW TOT - History of Present Illness The patient is a 59-year-old male present with a chief complaint of involuntary movements. The patient has a history of involuntary movements for several months. The patient has been seen by neurologist and has upcoming imaging scheduled. The patient states she was at dialysis today and they told him they could not perform the hemodialysis secondary to his involuntary movements. When asked how he is feeling the patient states she feels "okay." Patient denies complaints Patient is seen in the emergency room. He had seen Dr. Kumar recently for his neurologic issues. Patient states that he is legally blind. However he does notice some change in his vision prior to the start of his involuntary movement. Patient denies any shortness of breath. No nausea vomiting or diarrhea. He undergoes dialysis at [facility] on MWF schedule under our care Past History Past Medical History: diabetes, dialysis, hypertension, other Past Surgical History: Other (History of creation of AV graft ) Social history: no significant social history Medications and Allergies Allergies Allergy/AdvReac Type Severity Reaction Status Date / Time No Known Allergies Allergy Unverified 02/01/19 07:47 Home Medications Medication Instructions Recorded Confirmed Last Taken Type Aspirin [Aspirin BABY CHEW TAB] 81 mg PO QDAY 02/01/19 12/16/19 01/31/19 History AtorvaSTATin [Lipitor] 40 mg PO QHS 02/01/19 12/16/19 01/31/19 History Gabapentin 100 mg PO QHS 02/01/19 12/16/19 01/31/19 History Ibuprofen [Motrin 800 MG tab] 800 mg PO Q8HR PRN #30 tablet 02/01/19 12/16/19 Unknown Rx Insulin NPH Hum/Reg Insulin Hm 37 unit SQ QAM 02/01/19 12/16/19 01/31/19 History [HumuLIN 70-30 Vial] Pantoprazole [Protonix TAB] 40 mg PO QHS 02/01/19 12/16/19 01/31/19 History Sucroferric Oxyhydroxide(Nf) 500 mg PO QDAY 02/01/19 12/16/19 01/31/19 History [Velphoro (Nf)] carvediloL [Coreg] 25 mg PO BID 02/01/19 12/16/19 01/31/19 History Review of Systems All systems: negative (Negative except as noted above) Exam - Vital Signs Vital signs: Vital Signs Temp Pulse Resp BP Pulse Ox 98.0 F 82 21 187/91 95 01/15/20 12:48 01/15/20 12:48 01/15/20 12:48 01/15/20 12:48 01/15/20 12:48 - General Appearance General appearance: well-developed, well-nourished, appears stated age EENT: other (Patient is legally blind) Neck: Present: neck supple, trachea midline. Absent: JVD/HJR, Masses Respiratory: Clear to Ascultation Heart: regular, normal heart rate, S1S2, no murmurs Gastrointestinal: Present: normal, normoactive bowel sounds Integumentary: no rash, other (AV graft in his left upper arm. Good bruit and thrill) Results - Lab Results 01/15/20 13:11 01/15/20 13:11 Most recent lab results Calcium 10.8 mg/dL (8.4-10.2) H 01/15/20 13:11 Assessment and Plan Impression * End-stage renal disease on maintenance hemodialysis * Involuntary movement * Hypertension * Diabetes Recommendations * Patient was unable to get his dialysis today at the clinic because of worsening involuntary movement. He has received some Ativan in the emergency room and his symptoms seems to have improved significantly * Shall arrange for hemodialysis for today and keep him on MWF schedule as outpatient * Consider neurology evaluation . He was also scheduled to have an MRI as outpatient * Adjust diet and meds for ESRD state * Avoid nephrotoxins * No indication for Epogen at this time * Binders with meals * No IV, BP or venipuncture in his access arm * Thank you very much for the consultation. Shall follow along with you
[2020-01-15 18:25] LABS: Hepatitis B Surface Antigen Non-Reactive (Negative); Hepatitis C Virus Antibody Non-Reactive (NonReactive)
[2020-01-15] MEDS ORDERED: IBUPROFEN 800 MG TAB PO PRN (21:54)
[2020-01-15] MEDS ORDERED: HYDROmorphone 1 MG/1 ML INJ IV PRN (21:56)
[2020-01-15] MEDS ORDERED: ACETAMINOPHEN 325 MG TAB PO PRN (21:56)
[2020-01-15] MEDS ORDERED: ONDANSETRON 4 MG/2 ML INJ IV PRN (21:56)
[2020-01-15] MEDS ORDERED: oxyCODONE /ACETAMINOPHEN 5-325MG TAB PO PRN (21:56)
[2020-01-15] MEDS ORDERED: METOCLOPRAMIDE 10 MG/2 ML INJ IV PRN ×2 (21:56→22:07)
[2020-01-15] MEDS ORDERED: SUCROFERRIC OXYHYDROXIDE 500 MG PO SCH (22:00)
[2020-01-15] MEDS ORDERED: GABAPENTIN 100 MG CAP PO SCH (22:00)
[2020-01-15] MEDS ORDERED: FAMOTIDINE 10 MG TAB PO SCH (22:00)
[2020-01-15] MEDS ORDERED: PANTOPRAZOLE 40 MG TAB PO SCH (22:00)
[2020-01-15] MEDS: ASPIRIN 81 MG TAB CHEW PO SCH (22:44)
[2020-01-15] MEDS: carvediloL 25 MG TAB PO SCH (22:47)
[2020-01-16] MEDS ORDERED: INSULIN NPH/REGULAR 70/30 INJ SUB-Q SCH (08:00)
--- NOTE | 2020-01-16 09:14 | Progress Note ---
Assessment and Plan Impression * End-stage renal disease on maintenance hemodialysis * Involuntary movement * Hypertension * Diabetes Recommendations * Patient had uneventful hemodialysis yesterday. * His involuntary movement seems to have resolved. * Continue dialysis on MWF schedule as outpatient * Consider having the MRI which was scheduled as outpatient * Patient had seen Dr. Kumar as outpatient for neurology evaluation * Adjust diet and meds for ESRD state * Avoid nephrotoxins * No indication for Epogen at this time * Binders with meals * No IV, BP or venipuncture in his access arm * No objection to discharge from renal standpoint Subjective Date of service: 01/16/20 Interval history: Patient is comfortable today. He has not had any more tremors or involuntary movements since admission. Uneventful dialysis last night. Objective - Vital Signs Vital signs: Vital Signs - 12hr 01/15/20 01/15/20 01/15/20 22:47 23:38 23:40 Temperature 98.0 F 98.0 F Pulse Rate 86 73 Respiratory 16 16 Rate Blood Pressure 191/100 65/36 60/31 O2 Sat by Pulse 98 Oximetry 01/16/20 05:21 Temperature 98.6 F Pulse Rate 110 H Respiratory 20 Rate Blood Pressure 130/67 O2 Sat by Pulse 95 Oximetry - General Appearance General appearance: well-developed, well-nourished, appears stated age EENT: other (Patient is legally blind) Neck: no JVD, no thyromegaly, no carotid bruit, supple Respiratory: Present: Clear to Ascultation Cardiology: regular, normal heart rate Gastrointestinal: normal, normoactive bowel sounds Integumentary: other (AV graft in his left upper arm. Good bruit and thrill.) - Lab 01/15/20 13:11 01/15/20 13:11 Most recent lab results Calcium 10.8 mg/dL (8.4-10.2) H 01/15/20 13:11 Medications & Allergies - Medications Allergies/Adverse Reactions: Allergies No Known Allergies Allergy (Unverified 02/01/19 07:47) Home Medications: Home Medications Medication Instructions Recorded Confirmed Last Taken Type Aspirin [Aspirin BABY CHEW TAB] 81 mg PO QDAY 02/01/19 12/16/19 01/31/19 History AtorvaSTATin [Lipitor] 40 mg PO QHS 02/01/19 12/16/19 01/31/19 History Gabapentin 100 mg PO QHS 02/01/19 12/16/19 01/31/19 History Ibuprofen [Motrin 800 MG tab] 800 mg PO Q8HR PRN #30 tablet 02/01/19 12/16/19 Unknown Rx Insulin NPH Hum/Reg Insulin Hm 37 unit SQ QAM 02/01/19 12/16/19 01/31/19 History [HumuLIN 70-30 Vial] Pantoprazole [Protonix TAB] 40 mg PO QHS 02/01/19 12/16/19 01/31/19 History Sucroferric Oxyhydroxide(Nf) 500 mg PO QDAY 02/01/19 12/16/19 01/31/19 History [Velphoro (Nf)] carvediloL [Coreg] 25 mg PO BID 02/01/19 12/16/19 01/31/19 History Active Medications: Generic Name Dose Route Start Last Admin Trade Name Freq PRN Reason Stop Dose Admin Acetaminophen 650 mg 01/15/20 21:56 Tylenol PO Q4H PRN Pain MILD(1-3)/Fever >100.5/VICTORIA Aspirin 81 mg 01/15/20 22:00 01/15/20 22:44 Baby Aspirin PO 81 mg QDAY NOEMY Administration Atorvastatin Calcium 40 mg 01/15/20 22:00 01/15/20 22:44 Lipitor PO 40 mg QHS NOEMY Administration Carvedilol 25 mg 01/15/20 22:00 01/15/20 22:47 Coreg PO 25 mg BID NOEMY Administration Gabapentin 100 mg 01/15/20 22:00 01/15/20 22:44 Gabapentin PO 100 mg QHS NOEMY Administration Hydromorphone HCl 0.5 mg 01/15/20 21:56 Dilaudid IV Q3H PRN Pain , Severe (7-10) Ibuprofen 800 mg 01/15/20 21:54 Ibuprofen PO Q8HR PRN Pain, Moderate (4-6) Insulin Human Isoph/Insulin Regular 37 unit 01/16/20 08:00 01/16/20 08:12 Humulin 70/30 SUB-Q 37 unit QAMDIAB NOEMY Administration Metoclopramide HCl 5 mg 01/15/20 22:07 Reglan IV Q6H PRN Nausea And Vomiting Miscellaneous Medication 500 mg 01/15/20 22:00 Sucroferric Oxyhydroxide(Nf) PO QDAY NOEMY Ondansetron HCl 4 mg 01/15/20 21:56 Zofran IV Q3H PRN Nausea And Vomiting Oxycodone/Acetaminophen 1 tab 01/15/20 21:56 Percocet 5/325 PO Q6H PRN Pain, Moderate (4-6) Pantoprazole Sodium 40 mg 01/15/20 22:00 01/15/20 22:44 Protonix PO 40 mg QHS NOEMY Administration Sodium Chloride 10 ml 01/15/20 22:00 01/15/20 22:45 Sodium Chloride Flush Syringe 10 Ml IV 10 ml BID NOEMY Administration Sodium Chloride 10 ml 01/15/20 21:56 Sodium Chloride Flush Syringe 10 Ml IV PRN PRN LINE FLUSH
[2020-01-16] MEDS: carvediloL 25 MG TAB PO SCH (09:16)
[2020-01-16] MEDS: ASPIRIN 81 MG TAB CHEW PO SCH (09:16)
--- NOTE | 2020-01-16 09:52 | History and Physical Report ---
History of Present Illness Date of examination: 01/15/20 Date of admission: 01/15/20 14:58 Past History Past Medical History: diabetes, dialysis, hypertension, other Past Surgical History: Other (History of creation of AV graft ) Social history: no significant social history Medications and Allergies Allergies Allergy/AdvReac Type Severity Reaction Status Date / Time No Known Allergies Allergy Unverified 02/01/19 07:47 Home Medications Medication Instructions Recorded Confirmed Last Taken Type Aspirin [Aspirin BABY CHEW TAB] 81 mg PO QDAY 02/01/19 01/16/20 01/14/20 History AtorvaSTATin [Lipitor] 40 mg PO QHS 02/01/19 01/16/20 01/14/20 History Gabapentin 100 mg PO QHS 02/01/19 01/16/20 01/14/20 History Insulin NPH Hum/Reg Insulin Hm 47 unit SQ QAM 02/01/19 01/16/20 01/14/20 History [HumuLIN 70-30 Vial] Pantoprazole [Protonix TAB] 40 mg PO QHS 02/01/19 01/16/20 01/14/20 History Sucroferric Oxyhydroxide(Nf) 500 mg PO QDAY 02/01/19 01/16/20 01/14/20 History [Velphoro (Nf)] carvediloL [Coreg] 25 mg PO BID 02/01/19 01/16/20 01/15/20 History Insulin NPH/Regular [Novolin 70/30] 47 unit SQ QPM 01/16/20 01/16/20 Unknown History Active Meds: Active Medications Acetaminophen (Tylenol) 650 mg PO Q4H PRN PRN Reason: Pain MILD(1-3)/Fever >100.5/VICTORIA Aspirin (Baby Aspirin) 81 mg PO QDAY [facility] Last Admin: 01/16/20 09:16 Dose: 81 mg Documented by: Atorvastatin Calcium (Lipitor) 40 mg PO QHS [facility] Last Admin: 01/15/20 22:44 Dose: 40 mg Documented by: Carvedilol (Coreg) 25 mg PO BID [facility] Last Admin: 01/16/20 09:16 Dose: 25 mg Documented by: Gabapentin (Gabapentin) 100 mg PO QHS [facility] Last Admin: 01/15/20 22:44 Dose: 100 mg Documented by: Hydromorphone HCl (Dilaudid) 0.5 mg IV Q3H PRN PRN Reason: Pain , Severe (7-10) Ibuprofen (Ibuprofen) 800 mg PO Q8HR PRN PRN Reason: Pain, Moderate (4-6) Insulin Human Isoph/Insulin Regular (Humulin 70/30) 37 unit SUB-Q QAMDIAB [facility] Last Admin: 01/16/20 08:12 Dose: 37 unit Documented by: Metoclopramide HCl (Reglan) 5 mg IV Q6H PRN PRN Reason: Nausea And Vomiting Miscellaneous Medication (Sucroferric Oxyhydroxide(Nf)) 500 mg PO QDAY [facility] Ondansetron HCl (Zofran) 4 mg IV Q3H PRN PRN Reason: Nausea And Vomiting Oxycodone/Acetaminophen (Percocet 5/325) 1 tab PO Q6H PRN PRN Reason: Pain, Moderate (4-6) Pantoprazole Sodium (Protonix) 40 mg PO QHS [facility] Last Admin: 01/15/20 22:44 Dose: 40 mg Documented by: Sodium Chloride (Sodium Chloride Flush Syringe 10 Ml) 10 ml IV BID [facility] Last Admin: 01/16/20 09:17 Dose: 10 ml Documented by: Sodium Chloride (Sodium Chloride Flush Syringe 10 Ml) 10 ml IV PRN PRN PRN Reason: LINE FLUSH Exam - Constitutional Vitals: Temp Pulse Resp BP Pulse Ox 98.6 F 110 H 20 107/62 95 01/16/20 05:21 01/16/20 05:21 01/16/20 05:21 01/16/20 09:16 01/16/20 05:21 General appearance: Present: no acute distress, well-nourished - EENT Eyes: Present: PERRL ENT: hearing intact, clear oral mucosa - Neck Neck: Present: supple, normal ROM - Respiratory Respiratory effort: normal Respiratory: bilateral: CTA - Cardiovascular Heart Sounds: Present: S1 & S2. Absent: rub, click - Extremities Extremities: pulses symmetrical, No edema Peripheral Pulses: within normal limits - Abdominal General gastrointestinal: Present: soft, non-tender, non-distended, normal bowel sounds Male genitourinary: Present: normal - Integumentary Integumentary: Present: clear, warm, dry - Musculoskeletal Musculoskeletal: gait normal, strength equal bilaterally - Psychiatric Psychiatric: appropriate mood/affect, intact judgment & insight - Neurologic Neurologic: CNII-XII intact, moves all extremities Results - Labs CBC & Chem 7: 01/15/20 13:11 01/15/20 13:11 Labs: Laboratory Last Values WBC 9.1 K/mm3 (4.5-11.0) 01/15/20 13:11 RBC 4.55 M/mm3 (3.65-5.03) 01/15/20 13:11 Hgb 12.6 gm/dl (11.8-15.2) 01/15/20 13:11 Hct 37.4 % (35.5-45.6) 01/15/20 13:11 MCV 82 fl (84-94) L 01/15/20 13:11 MCH 28 pg (28-32) 01/15/20 13:11 MCHC 34 % (32-34) 01/15/20 13:11 RDW 16.0 % (13.2-15.2) H 01/15/20 13:11 Plt Count 153 K/mm3 (140-440) 01/15/20 13:11 Lymph % (Auto) 13.1 % (13.4-35.0) L 01/15/20 13:11 Meriwether % (Auto) 9.5 % (0.0-7.3) H 01/15/20 13:11 Eos % (Auto) 2.1 % (0.0-4.3) 01/15/20 13:11 Baso % (Auto) 0.9 % (0.0-1.8) 01/15/20 13:11 Lymph # (Auto) 1.2 K/mm3 (1.2-5.4) 01/15/20 13:11 Meriwether # (Auto) 0.9 K/mm3 (0.0-0.8) H 01/15/20 13:11 Eos # (Auto) 0.2 K/mm3 (0.0-0.4) 01/15/20 13:11 Baso # (Auto) 0.1 K/mm3 (0.0-0.1) 01/15/20 13:11 Seg Neutrophils % 74.4 % (40.0-70.0) H 01/15/20 13:11 Seg Neutrophils # 6.8 K/mm3 (1.8-7.7) 01/15/20 13:11 Sodium 142 mmol/L (137-145) 01/15/20 13:11 Potassium 4.6 mmol/L (3.6-5.0) 01/15/20 13:11 Chloride 100.7 mmol/L (98-107) 01/15/20 13:11 Carbon Dioxide 24 mmol/L (22-30) 01/15/20 13:11 Anion Gap 22 mmol/L 01/15/20 13:11 BUN 49 mg/dL (9-20) H 01/15/20 13:11 Creatinine 7.4 mg/dL (0.8-1.3) H 01/15/20 13:11 Estimated GFR 9 ml/min 01/15/20 13:11 BUN/Creatinine Ratio 7 % 01/15/20 13:11 Glucose 190 mg/dL (75-100) H 01/15/20 13:11 POC Glucose 221 (70-105) H 01/16/20 08:21 Calcium 10.8 mg/dL (8.4-10.2) H 01/15/20 13:11 Hepatitis A IgM Ab Non-reactive (NonReactive) 01/15/20 17:30 Hep Bs Antigen Non-reactive (Negative) 01/15/20 17:30 Hep B Core IgM Ab Non-reactive (NonReactive) 01/15/20 17:30 Hepatitis C Antibody Non-reactive (NonReactive) 01/15/20 17:30 Short CBC 01/15/20 Range/Units 13:11 WBC 9.1 (4.5-11.0) K/mm3 Hgb 12.6 (11.8-15.2) gm/dl Hct 37.4 (35.5-45.6) % Plt Count 153 (140-440) K/mm3 [facility] 01/15/20 13:11 Sodium 142 Potassium 4.6 Chloride 100.7 Carbon Dioxide 24 BUN 49 H Creatinine 7.4 H Glucose 190 H Calcium 10.8 H Clifford/IV: Voiding Method Toilet Assessment and Plan Advance Directives: Yes (Full code) VTE prophylaxis?: Chemical Plan of care discussed with patient/family: Yes - Patient Problems (1) ESRD (end stage renal disease) on dialysis Current Visit: Yes Status: Acute (2) 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
[2020-01-16 10:37] LABS: Basophils # (Auto) 0.1 K/mm3 (0.0-0.1); Basophils % (Auto) 1.3 % (0.0-1.8); Eosinophils # (Auto) 0.3 K/mm3 (0.0-0.4); Hematocrit 39.2 % (35.5-45.6); Hemoglobin 12.5 gm/dl (11.8-15.2); Lymphocytes % (Auto) 18.5 % (13.4-35.0); Mean Corpuscular HGB Conc 32 % (32-34); Mean Corpuscular Volume 84 fl (84-94); Monocytes # (Auto) 0.6 K/mm3 (0.0-0.8); Monocytes % (Auto) 12.1 % (0.0-7.3); Platelet Count 136 K/mm3 (140-440); Red Blood Count 4.67 M/mm3 (3.65-5.03); Red Cell Distribution Width 16.9 % (13.2-15.2)
[2020-01-16 10:56] LABS: Albumin 3.9 g/dL (3.9-5); Calcium 10.3 mg/dL (8.4-10.2)
--- NOTE | 2020-01-16 13:37 | Magnetic Resonance Report ---
MR brain wo con INDICATION / CLINICAL INFORMATION: 59 years Male; Involuntary movements/extrapyramidal syndrome. TECHNIQUE: Multiplanar, multisequence MR images of the brain were obtained. COMPARISON: None available. FINDINGS: BRAIN / INTRACRANIAL CONTENTS: The motion significant degrades image quality despite repeat imaging. However, there is extensive cerebral and right pontine white matter disease most consistent with micr ovascular angiopathy. The diffusion imaging reveals no clear evidence of acute infarction. There is mild cerebral atrophy which appears generalized. The ventricular system is correspondingly a ppropriate in size and configuration. No extra-axial fluid collections or significant mass effect is identified. CRANIOCERVICAL JUNCTION: No significant abnormality. 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 Otherwise, the vascular structures grossly demonstrate appropriate signal voids. ORBITS: There is notable heterogeneous signal involving the left optic globe with relative mild decre ase in size which may reflect developing phthisis bulbi. However, correlation would be needed regardi ng postsurgical changes. SINUSES / MASTOIDS: No significant abnormality in the visualized paranasal sinuses or mastoid air dwayne ls. ADDITIONAL FINDINGS: None. IMPRESSION: 1. There is extensive microvascular angiopathy as detailed above without evidence of acute infarction . Signer Name: Jese Robison MD Signed: 01/16/2020 1:33 PM Workstation Name: [id number]
--- NOTE | 2020-01-16 15:46 | Discharge Summary ---
Providers - Providers Date of Admission: 01/15/20 14:58 Date of discharge: 01/16/20 Attending physician: WANDA JEFFRIES 01/16/20 08:02 Consult to Wound/ET Nurse [CONS] Urgent Reason For Exam: wound eval to the right upper foot 01/16/20 09:53 Consult to Physician [CONS] Routine Comment: Consulting Provider: CHELSEA ADLER Physician Instructions: Reason For Exam: Involuntary movements/extrapyramidal syndrome Primary care physician: FAMILY EDUCATOR Hospitalization Condition: Fair Disposition: DC-01 TO HOME OR SELFCARE - Discharge Diagnoses (1) ESRD (end stage renal disease) on dialysis Status: Acute (2) Extrapyramidal movement disorder Status: Chronic (3) Hypertension Status: Acute (4) IDDM (insulin dependent diabetes mellitus) Status: Acute (5) DVT prophylaxis Status: Acute Core Measure Documentation - Palliative Care Palliative Care/ Comfort Measures: Not Applicable - Core Measures Any of the following diagnoses?: none Exam - Constitutional Vitals: Temp Pulse Resp BP Pulse Ox 98.6 F 110 H 20 107/62 95 01/16/20 05:21 01/16/20 05:21 01/16/20 05:21 01/16/20 09:16 01/16/20 05:21 General appearance: Present: no acute distress, well-nourished - EENT Eyes: Present: PERRL ENT: hearing intact, clear oral mucosa - Neck Neck: Present: supple, normal ROM - Respiratory Respiratory effort: normal Respiratory: bilateral: CTA - Cardiovascular Heart Sounds: Present: S1 & S2. Absent: rub, click - Extremities Extremities: pulses symmetrical, No edema Peripheral Pulses: within normal limits - Abdominal General gastrointestinal: Present: soft, non-tender, non-distended, normal bowel sounds Male genitourinary: Present: normal - Integumentary Integumentary: Present: clear, warm, dry - Musculoskeletal Musculoskeletal: gait normal, strength equal bilaterally - Psychiatric Psychiatric: appropriate mood/affect, intact judgment & insight - Neurologic Neurologic: CNII-XII intact, moves all extremities Plan Diet: renal Follow up with: PRIMARY MD BELA [Primary Care Provider] - 7 Days FERNANDO ADLER MD [Staff Physician] - 7 Days
--- NOTE | 2020-01-16 16:15 | Consultation ---
History of Present Illness Consult date: 01/16/20 Reason for Consult: abnormal body movements History of present illness: Tele Neurology consult: The patient is a 59-year-old male present yesterday, with a chief complaint of involuntary movements. The patient has a history of involuntary movements for several months. He says he has these movements every 4 days and it lasts for 24 hours each. during this time he is awake, understands , but he stops what he is doing, but feels sweaty, and cannot sleep. The patient has been seen by neurologist , Dr. Kumar and has upcoming imaging scheduled. . he underwent dialysis yesterday. today his movements have stopped. he is also blind. ED Past Medical Hx - Past Medical History Hx Hypertension: Yes Hx Diabetes: Yes Hx GERD: Yes Hx Renal Disease: Yes (ESRD) Additional medical history: HIGH CHOLESTROL/ SHINGLES/ GALL STONES/ LEGALLY BLIND - Surgical History Hx Open Heart Surgery: Yes Hx Cholecystectomy: Yes - Family History Family history: no significant - Social History Smoking Status: Never Smoker Substance Use Type: None (Denies illicit drug use) - Medications Home Medications: Home Medications Medication Instructions Recorded Confirmed Last Taken Type Aspirin [Aspirin BABY CHEW TAB] 81 mg PO QDAY 02/01/19 12/16/19 01/31/19 History AtorvaSTATin [Lipitor] 40 mg PO QHS 02/01/19 12/16/19 01/31/19 History Gabapentin 100 mg PO QHS 02/01/19 12/16/19 01/31/19 History Ibuprofen [Motrin 800 MG tab] 800 mg PO Q8HR PRN #30 tablet 02/01/19 12/16/19 U nknown Rx Insulin NPH Hum/Reg Insulin Hm 37 unit SQ QAM 02/01/19 12/16/19 01/31/19 History [HumuLIN 70-30 Vial] Pantoprazole [Protonix TAB] 40 mg PO QHS 02/01/19 12/16/19 01/31/19 History Sucroferric Oxyhydroxide(Nf) 500 mg PO QDAY 02/01/19 12/16/19 01/31/19 History [Velphoro (Nf)] carvediloL [Coreg] 25 mg PO BID 02/01/19 12/16/19 01/31/19 History Past History Past Medical History: diabetes, dialysis, hypertension, other Past Surgical History: Other (History of creation of AV graft ) Social history: no significant social history Medications and Allergies Allergies Allergy/AdvReac Type Severity Reaction Status Date / Time No Known Allergies Allergy Unverified 02/01/19 07:47 Home Medications Medication Instructions Recorded Confirmed Last Taken Type Aspirin [Aspirin BABY CHEW TAB] 81 mg PO QDAY 02/01/19 01/16/20 01/14/20 History AtorvaSTATin [Lipitor] 40 mg PO QHS 02/01/19 01/16/20 01/14/20 History Gabapentin 100 mg PO QHS 02/01/19 01/16/20 01/14/20 History Insulin NPH Hum/Reg Insulin Hm 47 unit SQ QAM 02/01/19 01/16/20 01/14/20 History [HumuLIN 70-30 Vial] Pantoprazole [Protonix TAB] 40 mg PO QHS 02/01/19 01/16/20 01/14/20 History Sucroferric Oxyhydroxide(Nf) 500 mg PO QDAY 02/01/19 01/16/20 01/14/20 History [Velphoro (Nf)] carvediloL [Coreg] 25 mg PO BID 02/01/19 01/16/20 01/15/20 History Insulin NPH/Regular [Novolin 70/30] 47 unit SQ QPM 01/16/20 01/16/20 Unknown History Active Meds: Active Medications Acetaminophen (Tylenol) 650 mg PO Q4H PRN PRN Reason: Pain MILD(1-3)/Fever >100.5/[place] Aspirin (Baby Aspirin) 81 mg PO QDAY [facility] Last Admin: 01/16/20 09:16 Dose: 81 mg Documented by: Atorvastatin Calcium (Lipitor) 40 mg PO QHS [facility] Last Admin: 01/15/20 22:44 Dose: 40 mg Documented by: Carvedilol (Coreg) 25 mg PO BID [facility] Last Admin: 01/16/20 09:16 Dose: 25 mg Documented by: Gabapentin (Gabapentin) 100 mg PO QHS [facility] Last Admin: 01/15/20 22:44 Dose: 100 mg Documented by: Hydromorphone HCl (Dilaudid) 0.5 mg IV Q3H PRN PRN Reason: Pain , Severe (7-10) Ibuprofen (Ibuprofen) 800 mg PO Q8HR PRN PRN Reason: Pain, Moderate (4-6) Insulin Human Isoph/Insulin Regular (Humulin 70/30) 37 unit SUB-Q QAMDIAB [facility] Last Admin: 01/16/20 08:12 Dose: 37 unit Documented by: Metoclopramide HCl (Reglan) 5 mg IV Q6H PRN PRN Reason: Nausea And Vomiting Miscellaneous Medication (Sucroferric Oxyhydroxide(Nf)) 500 mg PO QDAY [facility] Ondansetron HCl (Zofran) 4 mg IV Q3H PRN PRN Reason: Nausea And Vomiting Oxycodone/Acetaminophen (Percocet 5/325) 1 tab PO Q6H PRN PRN Reason: Pain, Moderate (4-6) Pantoprazole Sodium (Protonix) 40 mg PO QHS [facility] Last Admin: 01/15/20 22:44 Dose: 40 mg Documented by: Sodium Chloride (Sodium Chloride Flush Syringe 10 Ml) 10 ml IV BID [facility] Last Admin: 01/16/20 09:17 Dose: 10 ml Documented by: Sodium Chloride (Sodium Chloride Flush Syringe 10 Ml) 10 ml IV PRN PRN PRN Reason: LINE FLUSH Review of Systems All systems: negative (abnormal body movements) Physical Examination - Vital Signs Vital Signs: Vital Signs Temp Pulse Resp BP Pulse Ox 98.0 F 82 21 187/91 95 01/15/20 12:48 01/15/20 12:48 01/15/20 12:48 01/15/20 12:48 01/15/20 12:48 - Physical Exam Narrative exam: Neurology examination: Alert awake oriented to time, place and person. language- nl. cn- blind- no facial asymmetry. m- moves ue and le well. f-n- nl Laboratory Results - last 24 hr 01/15/20 01/16/20 01/16/20 17:30 00:56 08:21 WBC RBC Hgb Hct MCV MCH MCHC RDW Plt Count Lymph % (Auto) [place] % (Auto) Eos % (Auto) Baso % (Auto) Lymph # (Auto) [place] # (Auto) Eos # (Auto) Baso # (Auto) Seg Neutrophils % Seg Neutrophils # Sodium Potassium Chloride Carbon Dioxide Anion Gap BUN Creatinine Estimated GFR BUN/Creatinine Ratio Glucose POC Glucose 179 H 221 H Hemoglobin A1c Calcium Total Bilirubin AST ALT Alkaline Phosphatase Total Protein Albumin Albumin/Globulin Ratio Hepatitis A IgM Ab Non-reactive Hep Bs Antigen Non-reactive Hep B Core IgM Ab Non-reactive Hepatitis C Antibody Non-reactive 01/16/20 01/16/20 01/16/20 10:03 10:03 10:03 WBC 5.1 RBC 4.67 Hgb 12.5 Hct 39.2 MCV 84 MCH 27 L MCHC 32 RDW 16.9 H Plt Count 136 L Lymph % (Auto) 18.5 [place] % (Auto) 12.1 H Eos % (Auto) 5.0 H Baso % (Auto) 1.3 Lymph # (Auto) 1.0 L [place] # (Auto) 0.6 Eos # (Auto) 0.3 Baso # (Auto) 0.1 Seg Neutrophils % 63.1 Seg Neutrophils # 3.2 Sodium 140 Potassium 3.8 Chloride 95.4 L Carbon Dioxide 32 H D Anion Gap 16 BUN 35 H Creatinine 6.8 H Estimated GFR 10 BUN/Creatinine Ratio 5 Glucose 274 H POC Glucose Hemoglobin A1c 8.2 H Calcium 10.3 H Total Bilirubin 0.70 AST 25 ALT 40 Alkaline Phosphatase 72 Total Protein 7.0 Albumin 3.9 Albumin/Globulin Ratio 1.3 Hepatitis A IgM Ab Hep Bs Antigen Hep B Core IgM Ab Hepatitis C Antibody 01/16/20 11:56 WBC RBC Hgb Hct MCV MCH MCHC RDW Plt Count Lymph % (Auto) [place] % (Auto) Eos % (Auto) Baso % (Auto) Lymph # (Auto) [place] # (Auto) Eos # (Auto) Baso # (Auto) Seg Neutrophils % Seg Neutrophils # Sodium Potassium Chloride Carbon Dioxide Anion Gap BUN Creatinine Estimated GFR BUN/Creatinine Ratio Glucose POC Glucose 197 H Hemoglobin A1c Calcium Total Bilirubin AST ALT Alkaline Phosphatase Total Protein Albumin Albumin/Globulin Ratio Hepatitis A IgM Ab Hep Bs Antigen Hep B Core IgM Ab Hepatitis C Antibody Results - Laboratory Findings CBC and BMP: 01/16/20 10:03 01/16/20 10:03 Abnormal Lab Findings: Abnormal Labs 01/15/20 01/15/20 01/16/20 13:11 13:11 00:56 MCV 82 L MCH RDW 16.0 H Plt Count Lymph % (Auto) 13.1 L [place] % (Auto) 9.5 H Eos % (Auto) Lymph # (Auto) [place] # (Auto) 0.9 H Seg Neutrophils % 74.4 H Chloride Carbon Dioxide BUN 49 H Creatinine 7.4 H Glucose 190 H POC Glucose 179 H Hemoglobin A1c Calcium 10.8 H 01/16/20 01/16/20 01/16/20 08:21 10:03 10:03 MCV MCH 27 L RDW 16.9 H Plt Count 136 L Lymph % (Auto) [place] % (Auto) 12.1 H Eos % (Auto) 5.0 H Lymph # (Auto) 1.0 L [place] # (Auto) Seg Neutrophils % Chloride 95.4 L Carbon Dioxide 32 H D BUN 35 H Creatinine 6.8 H Glucose 274 H POC Glucose 221 H Hemoglobin A1c Calcium 10.3 H 01/16/20 01/16/20 10:03 11:56 MCV MCH RDW Plt Count Lymph % (Auto) [place] % (Auto) Eos % (Auto) Lymph # (Auto) [place] # (Auto) Seg Neutrophils % Chloride Carbon Dioxide BUN Creatinine Glucose POC Glucose 197 H Hemoglobin A1c 8.2 H Calcium Assessment and Plan 59-year-old male present yesterday, with a chief complaint of involuntary movements. The patient has a history of involuntary movements for several months. He says he has these movements every 4 days and it lasts for 24 hours each. during this time he is awake, understands , but he stops what he is doing, but feels sweaty, and cannot sleep. The patient has been seen by neurologist , Dr. Kumar and has upcoming imaging scheduled. . he underwent dialysis yesterday. today his movements have stopped. he is also blind. . --MRI brain w out- unremarkable.... ---it seems to have a cyclical pattern for the involuntary movements , every 4 days. i would think about endocrinological disorder. though possible seizures may be possible, but it is too regular a pattern. i would suggest that as outpatient he should be also seen by an Business Process Specialist. he is already followed by Neurology as outpatient an EEG can be done as out patient too. no further neurological intervention at this time. signing off. thank you.
[2020-01-16 17:55] VITALS: BP 101/56
== END 2020-01-16 16:55 | disposition home or self-care (01) ==
LOC: ED 12:26 → 3A 14:58
PROVIDERS: ADMIT Internal Medicine; ATTEND Internal Medicine
DX: I12.0 Hypertensive chronic kidney disease with stage 5 chronic kidney disease or end stage renal disease (principal); E11.22 Type 2 diabetes mellitus with diabetic chronic kidney disease; N18.6 End stage renal disease; G25.9 Extrapyramidal and movement disorder, unspecified; K21.9 Gastro-esophageal reflux disease without esophagitis; E78.00 Pure hypercholesterolemia, unspecified; Z90.49 Acquired absence of other specified parts of digestive tract; Z99.2 Dependence on renal dialysis; Z79.82 Long term (current) use of aspirin; Z79.4 Long term (current) use of insulin; Z79.899 Other long term (current) drug therapy
CPT/HCPCS: 36415; 70551; 80048; 80053; 80074; 82962; 83036; 85025; 96372; 99284; A9270; G0257; G0378; J2060; J1815

== ENCOUNTER 2021-03-06 05:37 | Emergency (ER) | payer MEDICARE ==
--- NOTE | 2021-03-06 06:16 | Emergency Department Report ---
ED CPR HPI - General Chief Complaint: Cardiac Arrest/CPR Stated Complaint: CARDIAC ARREST Time Seen by Provider: 03/06/21 05:48 Source: EMS Mode of arrival: Stretcher Limitations: Altered Mental Status - History of Present Illness Initial Comments: 60-year-old male with a past medical history of end-stage renal disease presents to the hospital cardiopulmonary arrest. Patient was last seen at 10 PM by family members. He was found unresponsive this morning. EMS arrived to scene at 5 AM notes patient was in asystole initiated resuscitation efforts. Patient was intubated with LMA with good CO detector color change. Patient received 4 rounds of epinephrine with chest compressions prior to arrival and remains in asystole at time of ED arrival at 5:37 AM. Accu-Chek 98 - Related Data Home Medications Medication Instructions Recorded Confirmed Last Taken Aspirin [Aspirin BABY CHEW TAB] 81 mg PO QDAY 02/01/19 01/16/20 01/14/20 AtorvaSTATin [Lipitor] 40 mg PO QHS 02/01/19 01/16/20 01/14/20 Gabapentin 100 mg PO QHS 02/01/19 01/16/20 01/14/20 Insulin NPH Hum/Reg Insulin Hm 47 unit SQ QAM 02/01/19 01/16/20 01/14/20 [HumuLIN 70-30 Vial] Pantoprazole [Protonix TAB] 40 mg PO QHS 02/01/19 01/16/20 01/14/20 Sucroferric Oxyhydroxide(Nf) 500 mg PO QDAY 02/01/19 01/16/20 01/14/20 [Velphoro (Nf)] carvediloL [Coreg] 25 mg PO BID 02/01/19 01/16/20 01/15/20 Insulin NPH/Regular [Novolin 70/30] 47 unit SQ QPM 01/16/20 01/16/20 Unknown Allergies Allergy/AdvReac Type Severity Reaction Status Date / Time No Known Allergies Allergy Unverified 02/01/19 07:47 ED Review of Systems ROS: Stated complaint: CARDIAC ARREST Other details as noted in HPI Comment: All other systems reviewed and negative ED Past Medical Hx - Past Medical History Hx Hypertension: Yes Hx CVA: No Hx Heart Attack/AMI: No Hx Congestive Heart Failure: No Hx Diabetes: Yes Hx Deep Vein Thrombosis: No Hx Pulmonary Embolism: No Hx GERD: Yes Hx Liver Disease: No Hx Renal Disease: No Hx Sickle Cell Disease: No Hx Arthritis: No Hx Headaches / Migraines: No Hx Seizures: No Hx Kidney Stones: No Hx Psychiatric Treatment: No Hx Asthma: No Hx COPD: No Hx Tuberculosis: No Hx Dementia: No Hx HIV: No Additional medical history: HIGH CHOLESTROL/ SHINGLES/ GALL STONES/ LEGALLY BLIND - Surgical History Hx Coronary Stent: No Hx Open Heart Surgery: Yes Hx Pacemaker: No Hx Internal Defibrillator: No Hx Cholecystectomy: Yes Additional Surgical History: CHOLEY - Social History Smoking Status: Never Smoker - Medications Home Medications: Home Medications Medication Instructions Recorded Confirmed Last Taken Type Aspirin [Aspirin BABY CHEW TAB] 81 mg PO QDAY 02/01/19 01/16/20 01/14/20 History AtorvaSTATin [Lipitor] 40 mg PO QHS 02/01/19 01/16/20 01/14/20 History Gabapentin 100 mg PO QHS 02/01/19 01/16/20 01/14/20 History Insulin NPH Hum/Reg Insulin Hm 47 unit SQ QAM 02/01/19 01/16/20 01/14/20 History [HumuLIN 70-30 Vial] Pantoprazole [Protonix TAB] 40 mg PO QHS 02/01/19 01/16/20 01/14/20 History Sucroferric Oxyhydroxide(Nf) 500 mg PO QDAY 02/01/19 01/16/20 01/14/20 History [Velphoro (Nf)] carvediloL [Coreg] 25 mg PO BID 02/01/19 01/16/20 01/15/20 History Insulin NPH/Regular [Novolin 70/30] 47 unit SQ QPM 01/16/20 01/16/20 Unknown History ED Physical Exam - General Limitations: Altered Mental Status - Other Other exam information: General: Unresponsive Head: Atraumatic Eyes: Fixed and dilated pupil ENT: Orally intubated with LMA Neck: Normal appearance Chest: Cno spontaneous respiration CV: Asystole, left arm dialysis access no thrill Abdomen: Soft Back: Normal inspection Extremity: No deformity Neuro: GCS 3 Psych: Unresponsive ED Medical Decision Making - Medical Decision Making 60-year-old male presents to the hospital with last known well time around 9 or 10 PM and asystole for least 30 minutes without return of spontaneous circulation. Patient received an additional dose of epinephrine after ED arrival and remained in asystole with no signs of life. Further resuscitation efforts thought to be futile and time of 5:34 AM. Patient's family members in the ED informed of his Critical Care Time: No Critical care attestation.: If time is entered above; I have spent that time in minutes in the direct care of this critically ill patient, excluding procedure time. ED Disposition Clinical Impression: Cardiopulmonary arrest Disposition: 20 Is pt being admited?: No Condition: Critical Time of Disposition: 06:16
[2021-03-06] MEDS ORDERED: EPINEPHrine 1 MG/10 ML SYRINGE ONE (13:41)
== END 2021-03-06 06:00 ==
LOC: ED 05:37
DX: I46.9 Cardiac arrest, cause unspecified (principal); I10 Essential (primary) hypertension; E11.8 Type 2 diabetes mellitus with unspecified complications; Z90.49 Acquired absence of other specified parts of digestive tract
CPT/HCPCS: 99285; J0171